=== PATIENT | female | born 1970 ===

== ENCOUNTER 2025-03-19 20:48 | Inpatient (IN) | payer OTHER ==
[~2025-03-19] VITALS: Ht 175.3 cm; Wt 116.1 kg
[2025-03-19 23:54] VITALS: BP 94/60
[2025-03-20] MEDS ORDERED: NS 1,000 ML IV SCH (00:05)
[2025-03-20] MEDS ORDERED: Hydroxychloroq200 MG PO (00:06)
[2025-03-20] MEDS ORDERED: OMEP20ER PO (00:07)
[2025-03-20] MEDS ORDERED: BASAGLAR K100 UNIT/3 SC (00:08)
[2025-03-20] MEDS ORDERED: ALBU90OI INH (00:08)
[2025-03-20] MEDS ORDERED: ATOR40TA PO (00:09)
[2025-03-20] MEDS ORDERED: SERT100 PO (00:10)
[2025-03-20] MEDS ORDERED: SPIRONOLACTONE50 MG PO (00:12)
[2025-03-20] MEDS ORDERED: FLUTICASONE-SAL12 G1 INH (00:12)
[2025-03-20] MEDS ORDERED: METFORMIN HCL500 M3 PO (00:13)
[2025-03-20] MEDS ORDERED: FOLI1 PO (00:14)
[2025-03-20 00:23] LABS: BASOPHILS ABSOLUTE AUTO 0.08 K/mm3 (0.00-0.23); BASOPHILS PERCENT AUTO 1 % (0-2); EOSINOPHILS ABSOLUTE AUTO 0.37 K/mm3 (0.00-0.68); EOSINOPHILS PERCENT AUTO 2 % (0-6); Hematocrit 30.1 % (33.0-51.0); Hemoglobin 9.7 g/dL (11.5-16.0); IMMATURE GRAN ABSOLUTE AUTO 0.10 K/mm3 (0.00-0.10); IMMATURE GRAN PERCENT AUTO 1 % (0-1); LYMPHOCYTES ABSOLUTE AUTO 2.12 K/mm3 (0.84-5.20); LYMPHOCYTES PERCENT AUTO 14 % (21-46); MONOCYTES ABSOLUTE AUTO 1.39 K/mm3 (0.16-1.47); MONOCYTES PERCENT AUTO 9 % (4-13); Mean Corpuscular HGB Conc 32.2 g/dL (31.5-36.5); Mean Corpuscular Volume 85 fL (80-100); NEUTROPHILS ABSOLUTE AUTO 11.33 K/mm3 (1.96-9.15); NEUTROPHILS PERCENT AUTO 74 % (41-73); NRBC ABSOLUTE 0.00 K/mm3 (0.00-0.02); NRBC Auto 0.0 /100 WBC (0.0-0.2); Platelet Count 383 K/mm3 (150-400); RDW Coefficient Variation 12.8 % (11.7-14.2); RDW Standard Deviation 39.7 fL (35.1-46.3)
[2025-03-20] MEDS ORDERED: FentaNYL Citrate 50 MCG/ML 2 ML Injection IV PRN (00:25)
[2025-03-20 00:37] LABS: Prothrombin Time Results 11.3 Sec (9.7-11.5)
[2025-03-20 00:41] LABS: Alanine Aminotransfer (ALT/SGP 25.0 U/L (12-78); Albumin, Blood 2.2 g/dL (3.4-5.0); Albumin/Globulin Ratio 0.5 (0.8-1.8); Anion Gap 9.0 mmol/L (3-11); Aspartate Aminotrans (AST/SGOT 23.0 U/L (12-37); Bilirubin, Total 0.2 mg/dL (0.1-1.0); Blood Urea Nitrogen 14.0 mg/dL (8-24); CO2, Blood 24.0 mmol/L (21-32); Calcium, Blood 8.3 mg/dL (8.5-10.1); Chloride, Blood 106.0 mmol/L (98-108); Creatinine, Blood 0.72 mg/dL (0.40-1.00); Globulin, Blood 4.5 g/dL (2.2-4.0); Glucose, Blood 238.0 mg/dL (70-99); Potassium, Blood 3.3 mmol/L (3.5-5.5); Sodium, Blood 136.0 mmol/L (136-145); Total Protein, Blood 6.7 g/dL (6.4-8.2)
[2025-03-20] MEDS ORDERED: FLU VACC TS2025-26(6MOS UP)/PF 45 MCG/0.5 ML SYRINGE IM SCH (01:30)
[2025-03-20] MEDS ORDERED: Albuterol HFA200 ACT/6.7 GM INH INH SCH (01:35)
[2025-03-20] MEDS ORDERED: Formoterol/Mometasone MDI 5/200 mcg 13 GM INH SCH (01:35)
--- NOTE | 2025-03-20 01:48 | NUR ---
ADMISSION NOTE PT TRANSFERED FROM [facility] AND ARRIVED AT 2337. PT A&OX4, PLEASANT AND COOPERATIVE WITH CARE. PT HAS 2 WOUNDS ON THE BOTTOM OF THE LEFT FOOT, WHICH UPON ADMISSION WERE UNPACKED AND REPACKED AND DRESSED. PT HAS A WOUND ON THE R GREAT TOE WELL. PHOTOS OF THE WOUNDS IN THE PT CHART. NIGHT RESIDENT CAME TO BEDSIDE TO ADDRESS PLAN OF CARE AND GATHER OTHER INFORMATION FROM THE PATIENT. PT ORIENTED TO ROOM, STAFF, AND CALL LIGHT. PT MEDICATED FOR PAIN, HAS NS RUNNING AT 75mLs, AND IS NPO FOR POSSIBLE AMPUTATION OF LEFT LEG TOMORROW. PT IS EMOTIONAL, SUPPORT PROVIDED. PT IS IN BED RESTING AT THIS TIME WITH EVEN AND UNLABORED RESPIRATIONS. CALL LIGHT WITHIN REACH.
[2025-03-20] MEDS ORDERED: Vancomycin (Pharmacy Consult) IV SCH (02:15)
[2025-03-20] MEDS ORDERED: Cefepime HCl 2,000 MG in NS 100 ML IV SCH (03:05)
[2025-03-20 03:06] VITALS: BP 104/63
[2025-03-20] MEDS ORDERED: Albuterol HFA200 ACT/6.7 GM INH INH PRN (03:10)
[2025-03-20] MEDS ORDERED: THERA-D2000 UNIT PO (03:29)
[2025-03-20] MEDS ORDERED: Voltaren100 GM TOP (03:34)
[2025-03-20] MEDS ORDERED: Norco 5-325 Ta1 EACH PO (03:36)
[2025-03-20] MEDS ORDERED: HYDPAM25 PO (03:39)
[2025-03-20] MEDS ORDERED: LINE600 PO (03:54)
[2025-03-20] MEDS ORDERED: MELO7.5 PO (03:55)
--- NOTE | 2025-03-20 05:44 | NUR ---
SHIFT SUMMARY PT IS A&OX4, PLEASANT AND COOPERATIVE WITH CARE. PT DIRECTLY ADMITTED FROM THE [facility] @ 3249. PT HAS BEEN NPO SINCE ARRIVAL FOR POSSIBLE AMPUTATION TODAY OF THE LLE. PT HAS A PUREWICK IN PLACE DUE TO BEDREST STATUS AND PAINFUL WITH MOVEMENT. NO ACTUE CHANGES SINCE ADMISSION NOTE. PT RESTED T/O SHIFT WITH EVEN AND UNLABORED RESPIRATIONS, BED IN THE LOWEST POSITION, AND CALL LIGHT WITHIN REACH.
[2025-03-20 06:10] LABS: Anion Gap 10.0 mmol/L (3-11); Blood Urea Nitrogen 13.0 mg/dL (8-24); CO2, Blood 24.0 mmol/L (21-32); Calcium, Blood 8.8 mg/dL (8.5-10.1); Chloride, Blood 107.0 mmol/L (98-108); Creatinine, Blood 0.71 mg/dL (0.40-1.00); Glucose, Blood 164.0 mg/dL (70-99); Magnesium, Blood 1.6 mg/dL (1.6-2.4); Potassium, Blood 3.5 mmol/L (3.5-5.5); Sodium, Blood 137.0 mmol/L (136-145)
[2025-03-20 07:33] VITALS: BP 103/72
[2025-03-20] MEDS ORDERED: Folic Acid 1 MG TAB PO SCH (09:00)
[2025-03-20] MEDS ORDERED: Lactobacil 2-S.Thermo-Bifido 1 1 Cap PO SCH (09:00)
[2025-03-20] MEDS ORDERED: Insulin Human Lispro 100 Units/ML 3ML Syringe SC SCH (12:00)
[2025-03-20 13:19] LABS: BASOPHILS ABSOLUTE AUTO 0.06 K/mm3 (0.00-0.23); BASOPHILS PERCENT AUTO 1 % (0-2); EOSINOPHILS ABSOLUTE AUTO 0.28 K/mm3 (0.00-0.68); EOSINOPHILS PERCENT AUTO 3 % (0-6); Hematocrit 31.3 % (33.0-51.0); Hemoglobin 9.9 g/dL (11.5-16.0); IMMATURE GRAN ABSOLUTE AUTO 0.06 K/mm3 (0.00-0.10); IMMATURE GRAN PERCENT AUTO 1 % (0-1); LYMPHOCYTES ABSOLUTE AUTO 1.50 K/mm3 (0.84-5.20); LYMPHOCYTES PERCENT AUTO 15 % (21-46); MONOCYTES ABSOLUTE AUTO 0.86 K/mm3 (0.16-1.47); MONOCYTES PERCENT AUTO 9 % (4-13); Mean Corpuscular HGB Conc 31.6 g/dL (31.5-36.5); Mean Corpuscular Volume 86 fL (80-100); NEUTROPHILS ABSOLUTE AUTO 7.25 K/mm3 (1.96-9.15); NEUTROPHILS PERCENT AUTO 72 % (41-73); NRBC ABSOLUTE 0.00 K/mm3 (0.00-0.02); NRBC Auto 0.0 /100 WBC (0.0-0.2); Platelet Count 376 K/mm3 (150-400); RDW Coefficient Variation 12.7 % (11.7-14.2); RDW Standard Deviation 40.0 fL (35.1-46.3)
[2025-03-20 13:40] LABS: C-REACTIVE PROTEIN, EXT RANGE 12.1 mg/dL (0.000-0.300)
[2025-03-20 13:44] LABS: Alanine Aminotransfer (ALT/SGP 26.0 U/L (12-78); Albumin, Blood 2.4 g/dL (3.4-5.0); Albumin/Globulin Ratio 0.6 (0.8-1.8); Anion Gap 5.0 mmol/L (3-11); Aspartate Aminotrans (AST/SGOT 23.0 U/L (12-37); Bilirubin, Total 0.3 mg/dL (0.1-1.0); Blood Urea Nitrogen 12.0 mg/dL (8-24); CO2, Blood 26.0 mmol/L (21-32); Calcium, Blood 8.1 mg/dL (8.5-10.1); Chloride, Blood 107.0 mmol/L (98-108); Creatinine, Blood 0.69 mg/dL (0.40-1.00); Globulin, Blood 4.0 g/dL (2.2-4.0); Glucose, Blood 285.0 mg/dL (70-99); Potassium, Blood 3.9 mmol/L (3.5-5.5); Sodium, Blood 134.0 mmol/L (136-145); Total Protein, Blood 6.4 g/dL (6.4-8.2)
[2025-03-20 15:12] VITALS: BP 110/65
--- NOTE | 2025-03-20 15:58 | NUR ---
SHIFT SUMMARY: A&OX4 THROUGHOUT SHIFT. PLEASANT AND COOPERATIVE WITH CARE. PT HAS REPORTED PAIN A FEW TIMES AND TREATED PER EMAR. WOUND DRESSING WAS CHANGED THIS MORNING AFTER ORTHO ASSESSED THE WOUND. PT RECIEVED A CONSULT FROM PODIATRY LATER THIS AFTERNOON TO HELP DETERMINE THE PLAN OF CARE. PLAN IS FOR THE PT TO BE NPO STATUS AT 0000 TONIGHT FOR POTENTIAL SURGERY. BEDREST STATUS REMAINS. REPOSITIONING OFFERED TO PT, BUT FREQUENTLY DECLINED. NO ACUTE EVENTS. BREATHING EQUAL AND NONLABORED. PT IS LYING IN BED AT THIS TIME, LOCKED AND IN ITS LOWEST POSITION. CALL LT WITHIN REACH.
[2025-03-20 20:34] VITALS: BP 98/60
[2025-03-20] MEDS ORDERED: Arginine/Glutamine/Calcium Hmb 1 Packet PO SCH (21:00)
[2025-03-20] MEDS ORDERED: Insulin Glargine 100 Unit/ML 3 ML SYR SC SCH (21:00)
[2025-03-20] MEDS ORDERED: HUMALOG KW100 UNIT/1 (21:12)
[2025-03-20] MEDS ORDERED: ACET500 PO (21:14)
[2025-03-20] MEDS ORDERED: Insulin Glargine 100 Unit/ML 3 ML SYR SC ONE (23:15)
[2025-03-21 03:36] VITALS: BP 96/58
--- NOTE | 2025-03-21 05:13 | NUR ---
SHIFT SUMMARY PT IS A&OX4, PLEASANT AND COOPERATIVE WITH CARE. PT CALLS APPROPRIATELY. PT HAS BEEN NPO SINCE MIDNIGHT FOR BKA OF LLE TODAY. PT REPORTED PAIN T/O SHIFT, MEDICATED PER EMAR. AT THE BEGINNING OF SHIFT, PT HAD AN ELEVATED TEMPERATURE, TYLENOL PROVIDED AND HAD A GOOD EFFECT. NO OTHER ACUTE CHANGES THIS SHIFT. PT RESTED T/O SHIFT WITH EVEN AND UNLABORED RESPIRATIONS, BED IN THE LOWEST POSITION, AND CALL LIGHT WITHIN REACH.
[2025-03-21 07:59] VITALS: BP 106/72
[2025-03-21 08:38] LABS: BASOPHILS ABSOLUTE AUTO 0.09 K/mm3 (0.00-0.23); BASOPHILS PERCENT AUTO 1 % (0-2); EOSINOPHILS ABSOLUTE AUTO 0.32 K/mm3 (0.00-0.68); EOSINOPHILS PERCENT AUTO 3 % (0-6); Hematocrit 28.6 % (33.0-51.0); Hemoglobin 9.4 g/dL (11.5-16.0); IMMATURE GRAN ABSOLUTE AUTO 0.10 K/mm3 (0.00-0.10); IMMATURE GRAN PERCENT AUTO 1 % (0-1); LYMPHOCYTES ABSOLUTE AUTO 2.02 K/mm3 (0.84-5.20); LYMPHOCYTES PERCENT AUTO 21 % (21-46); MONOCYTES ABSOLUTE AUTO 0.92 K/mm3 (0.16-1.47); MONOCYTES PERCENT AUTO 10 % (4-13); Mean Corpuscular HGB Conc 32.9 g/dL (31.5-36.5); Mean Corpuscular Volume 83 fL (80-100); NEUTROPHILS ABSOLUTE AUTO 6.22 K/mm3 (1.96-9.15); NEUTROPHILS PERCENT AUTO 64 % (41-73); NRBC ABSOLUTE 0.00 K/mm3 (0.00-0.02); NRBC Auto 0.0 /100 WBC (0.0-0.2); Platelet Count 414 K/mm3 (150-400); RDW Coefficient Variation 12.9 % (11.7-14.2); RDW Standard Deviation 39.2 fL (35.1-46.3)
[2025-03-21 09:16] LABS: Anion Gap 9.0 mmol/L (3-11); Blood Urea Nitrogen 14.0 mg/dL (8-24); CO2, Blood 26.0 mmol/L (21-32); Calcium, Blood 8.8 mg/dL (8.5-10.1); Chloride, Blood 105.0 mmol/L (98-108); Creatinine, Blood 0.71 mg/dL (0.40-1.00); Glucose, Blood 251.0 mg/dL (70-99); Potassium, Blood 3.5 mmol/L (3.5-5.5); Sodium, Blood 136.0 mmol/L (136-145)
[2025-03-21 15:29] VITALS: BP 105/64
[2025-03-21 16:24] LABS: Vancomycin, Trough 22.8 ug/mL (5.0-10.0)
--- NOTE | 2025-03-21 17:54 | NUR ---
SUMMARY- PT AAOX4. SLEPT MOST OF THE SHIFT. LLE LEG PAIN WELL CONTROLLED WITH EMAR PAIN MEDS. PT ON RA. BEDREST. NO ACUTE EVENTS THIS SHIFT.
[2025-03-21 19:53] VITALS: BP 103/62
[2025-03-21] MEDS ORDERED: Insulin Glargine 100 Unit/ML 3 ML SYR SC ONE (21:35)
[2025-03-22] VITALS (20 sets, daily range): BP systolic 97–118; BP diastolic 60–95
[2025-03-22] MEDS ORDERED: NS 250 ML IV PRN (00:05)
[2025-03-22 04:47] LABS: BASOPHILS ABSOLUTE AUTO 0.07 K/mm3 (0.00-0.23); BASOPHILS PERCENT AUTO 1 % (0-2); EOSINOPHILS ABSOLUTE AUTO 0.31 K/mm3 (0.00-0.68); EOSINOPHILS PERCENT AUTO 2 % (0-6); Hematocrit 31.0 % (33.0-51.0); Hemoglobin 10.3 g/dL (11.5-16.0); IMMATURE GRAN ABSOLUTE AUTO 0.11 K/mm3 (0.00-0.10); IMMATURE GRAN PERCENT AUTO 1 % (0-1); LYMPHOCYTES ABSOLUTE AUTO 1.84 K/mm3 (0.84-5.20); LYMPHOCYTES PERCENT AUTO 14 % (21-46); MONOCYTES ABSOLUTE AUTO 1.09 K/mm3 (0.16-1.47); MONOCYTES PERCENT AUTO 9 % (4-13); Mean Corpuscular HGB Conc 33.2 g/dL (31.5-36.5); Mean Corpuscular Volume 83 fL (80-100); NEUTROPHILS ABSOLUTE AUTO 9.33 K/mm3 (1.96-9.15); NEUTROPHILS PERCENT AUTO 73 % (41-73); NRBC ABSOLUTE 0.00 K/mm3 (0.00-0.02); NRBC Auto 0.0 /100 WBC (0.0-0.2); Platelet Count 441 K/mm3 (150-400); RDW Coefficient Variation 12.4 % (11.7-14.2); RDW Standard Deviation 37.9 fL (35.1-46.3)
[2025-03-22 05:33] LABS: Anion Gap 10.0 mmol/L (3-11); Blood Urea Nitrogen 20.0 mg/dL (8-24); CO2, Blood 26.0 mmol/L (21-32); Calcium, Blood 9.4 mg/dL (8.5-10.1); Chloride, Blood 102.0 mmol/L (98-108); Creatinine, Blood 0.61 mg/dL (0.40-1.00); Glucose, Blood 333.0 mg/dL (70-99); Potassium, Blood 3.5 mmol/L (3.5-5.5); Sodium, Blood 134.0 mmol/L (136-145)
--- NOTE | 2025-03-22 05:42 | NUR ---
SHIFT SUMMARY (301) PT IS A&OX4, PLEASANT AND COOPERATIVE WITH CARE. FAMILY AT BEDSIDE T/O SHIFT. PT EXPRESSES ANXIETY FOR BKA PROCEDURE LATER TODAY, SUPPORT WAS PROVIDED BY THIS RN AND FAMILY. NPO SINCE MIDNIGHT. PT MEDICATED FOR PAIN TO THE LLE PER EMAR. NO ACUTE CHANGES THIS SHIFT. PT SLEPT T/O SHIFT WITH EVEN AND UNLABORED RESPIRATIONS, BED IN THE LOWEST POSITION, AND CALL LIGHT WITHIN REACH.
[2025-03-22] MEDS ORDERED: Tranexamic Acid 100 ML IV SCH (07:15)
[2025-03-22] MEDS ORDERED: FentaNYL Citrate 50 MCG/ML 2 ML Injection ONE ×2 (11:18→14:27)
[2025-03-22] MEDS ORDERED: Ondansetron HCl 2 MG / ML 2ML Vial ONE (11:20)
[2025-03-22] MEDS ORDERED: Dexamethasone Sod Phos 10 MG/ML 1ML VIAL ONE (11:20)
[2025-03-22] MEDS ORDERED: FentaNYL Citrate 50 MCG/ML 2 ML Injection IV PRN ×3 (11:30→11:35)
[2025-03-22] MEDS ORDERED: Midazolam HCl 1MG / ML 2ML Vial IV PRN (11:30)
[2025-03-22] MEDS ORDERED: Insulin Human Lispro 100 Units/ML 3ML Syringe SC SCH (11:30)
[2025-03-22] MEDS ORDERED: Metoclopramide HCl 5MG / ML 2ML Vial IV PRN (11:35)
[2025-03-22] MEDS ORDERED: HYDROmorphone HCl/Pf 1MG SYR IV PRN (11:35)
[2025-03-22] MEDS ORDERED: Ondansetron HCl 2 MG / ML 2ML Vial IV PRN (11:35)
--- NOTE | 2025-03-22 12:04 | NUR ---
PATIENT OFF MED FLOOR FOR SURGERY.
[2025-03-22] MEDS ORDERED: HYDROcodone 5-APAP 325 TAB PO PRN (12:15)
[2025-03-22] MEDS ORDERED: Dexmedetomidine HCL 200 MCG / 2 ML ONE (12:36)
[2025-03-22] MEDS ORDERED: HYDROmorphone HCl/Pf 1MG SYR ONE ×2 (13:14→14:31)
--- NOTE | 2025-03-22 14:26 | NUR ---
JOINT VISIT WITH THIS MORNING. AT BEDSIDE ASSESSING PT FOR SURGICAL INTERVENTION TO LLE. PT CONSENTED TO LEFT BKA THIS AFTERNOON. SHE WAS ACTIVELY ENGAGED IN CONVERSATION RE: ENVIRONMENTAL HEALTH SAFETY MANAGER GOALS S/P LEFT BKA. THIS PC RN REAFFIRMED IMPORTANCE OF DIABETES MANAGEMENT S/P BKA FOR GOOD WOUND HEALING, DECREASE INFECTION RISKS AND DECREASE THE POSSIBILITY OF NEEDING FURTHER SURGICAL INTERVENTIONS. ADDITIONAL WOUND RIGHT GREAT TOE. CHRONIC DIABETIC FOOT WOUNDS. POOR DIABETES LITERACY. DENIES OUTPATIENT DIABETES EDUCATION. PLUG STITCHER CONSULT PLACED FOR ASSISTANCE WITH EDUCATION. PT'S DTR JOJO ROSE, SON MARCOS ROSE, RESIDENT RN PRESENT FOR VISIT WELL. PT IDENTIFIED HER SON MARCOS ROSE HER DECISION IF SHE IS NOT ABLE TO MAKE DECISIONS FOR HERSELF. PT REPORTS SHE WOULD LIKE TO GO TO SNF AT TIME OF DISCHARGE. VM LEFT FOR CM1. PC TO REMAIN AVAILABLE NEEDED.
--- NOTE | 2025-03-22 16:03 | NUR ---
PT A/OX4. PLEASANT AND COOPERATIVE WITH CARE. PT HAS BEEN EMOTIONAL AFTER HER LEFT BKA TODAY. FAMILY HAS BEEN AT THE BEDSIDE T/O SHIFT. PAIN HAS BEEN TREATED PER EMAR. PT ARRIVED FROM PACU ON 3L OF O2 NC, WITH RA BEING HER BASELINE. POST-OP VITALS HAVE BEEN STABLE. PT IS CURRENTLY RESTING IN BED WITH EVEN AND UNLABORED RESPIRATIONS. BED IS IN LOWEST POSITION, CALL LIGHT IS IN REACH.
--- NOTE | 2025-03-22 17:32 | NUR ---
THIS RN CONTACTED DR. LOPEZ ABOUT PTS BLOOD SUGAR BEING 374. PER DR. SANCHEZ ORDERS, 15 UNITS OF INSULIN ADMINISTERED TO PT.
[2025-03-22] MEDS ORDERED: Insulin Glargine 100 Unit/ML 3 ML SYR SC SCH (21:00)
[2025-03-22] MEDS ORDERED: Insulin Glargine-Yfgn 100 Unit/mL 3 ML SYR SC SCH (21:00)
[2025-03-22] MEDS ORDERED: Insulin Human Lispro 100 Units/ML 3ML Syringe SC ONE ×2 (21:45→23:00)
--- NOTE | 2025-03-22 23:00 | NUR ---
UPDATED PHYSICIAN ABOUT CHANGE IN CBG LEVEL FROM 499 TO 458 ONE HOUR AFTER THE ADMINISTRATION OF 10 UNITS HUMALOG AND 40 OF LANTUS. MD ORDERED X1 10 UNITS OF HUMALOG AND A RECHECK OF CBG IN AN HOUR. GOAL IS TO ACHIEVE A CBG OF >350.
[2025-03-23 00:19] VITALS: BP 112/62
[2025-03-23] MEDS ORDERED: Insulin Glargine-Yfgn 100 Unit/mL 3 ML SYR SC ONE (00:55)
[2025-03-23 04:02] VITALS: BP 102/71
--- NOTE | 2025-03-23 04:56 | NUR ---
ORIENTING NURSE DOCUMENTATION REVIEW: TREATMENTS, MEDICATIONS AND PATIENT CARE PROVIDED TO PATIENT AND DOCUMENTATION ENTERED BY ORIENTING NURSECHAI, OVERSEEN BY THIS RN.
--- NOTE | 2025-03-23 05:01 | NUR ---
SHIFT SUMMARY PT IS STATUS POST OP BKA OF THE LLE. PT IS A&OX4, PLEASANT AND COOPERATIVE WITH CARE. PT REPORTED 8-9/10 PAIN AT THE INCISION SITE THROUGHOUT SHIFT, PT MEDICATED PER EMAR FOR PAIN WITH GOOD EFFECT. AT THE BEGINNING OF SHIFT PT HAD A CBG OF 499, MD WAS NOTIFIED AND ADDITIONAL ORDERS OF INSULIN WERE ORDERED. SEE PREVIOUS NOTES. NO OTHER ACUTE CHANGES THIS SHIFT. PT HAS BEEN WEANED OFF OF O2 AND IS SATING >92%, DENIES SHORTNESS OF BREATH. PT RESTED T/O SHIFT WITH EVEN AND UNLABORED RESPIRATION, BED IN THE LOWEST POSITION, AND CALL LIGHT WITHIN REACH.
[2025-03-23 05:25] LABS: BASOPHILS ABSOLUTE AUTO 0.07 K/mm3 (0.00-0.23); BASOPHILS PERCENT AUTO 0 % (0-2); EOSINOPHILS ABSOLUTE AUTO 0.02 K/mm3 (0.00-0.68); EOSINOPHILS PERCENT AUTO 0 % (0-6); Hematocrit 31.8 % (33.0-51.0); Hemoglobin 10.5 g/dL (11.5-16.0); IMMATURE GRAN ABSOLUTE AUTO 0.19 K/mm3 (0.00-0.10); IMMATURE GRAN PERCENT AUTO 1 % (0-1); LYMPHOCYTES ABSOLUTE AUTO 1.04 K/mm3 (0.84-5.20); LYMPHOCYTES PERCENT AUTO 6 % (21-46); MONOCYTES ABSOLUTE AUTO 1.38 K/mm3 (0.16-1.47); MONOCYTES PERCENT AUTO 7 % (4-13); Mean Corpuscular HGB Conc 33.0 g/dL (31.5-36.5); Mean Corpuscular Volume 83 fL (80-100); NEUTROPHILS ABSOLUTE AUTO 16.05 K/mm3 (1.96-9.15); NEUTROPHILS PERCENT AUTO 86 % (41-73); NRBC ABSOLUTE 0.00 K/mm3 (0.00-0.02); NRBC Auto 0.0 /100 WBC (0.0-0.2); Platelet Count 470 K/mm3 (150-400); RDW Coefficient Variation 12.4 % (11.7-14.2); RDW Standard Deviation 37.4 fL (35.1-46.3)
[2025-03-23 06:01] LABS: Anion Gap 10 mmol/L (3-11); Blood Urea Nitrogen 23 mg/dL (8-24); CO2, Blood 25 mmol/L (21-32); Calcium, Blood 9.2 mg/dL (8.5-10.1); Chloride, Blood 103 mmol/L (98-108); Creatinine, Blood 0.61 mg/dL (0.40-1.00); Glucose, Blood 384 mg/dL (70-99); Potassium, Blood 3.9 mmol/L (3.5-5.5); Sodium, Blood 134 mmol/L (136-145); Vancomycin, Trough 16.8 ug/mL (5.0-10.0)
[2025-03-23 07:25] VITALS: BP 113/78
[2025-03-23] MEDS ORDERED: Insulin NPH 100 Unit / ML 10ML Vial SC SCH (09:00)
--- NOTE | 2025-03-23 10:01 | NUR ---
ASSUMED CARE. PT A/O X 4 PLEASENT AND COOPERATIVE WITH CARE, C/O NAGGING PAIN TO LEFT STUMP. DRESSING C/D/I. RIGHT SCD ON AND PT IS KNOWN BEDREST. FSBS >350 WITH COVERAGE, BUT IS DOWN FROM THIS MORNING. WILL CONT TO MONITOR PT WAS GIVEN PAIN MEDICATION AT 6AM SO WILL WAIT UNTIL 8 TO TRY ADDITIONAL MEDICATION.
--- NOTE | 2025-03-23 10:03 | NUR ---
0830 MEDICATED FOR PAIN. L STUMP ELEVATED.
--- NOTE | 2025-03-23 10:04 | NUR ---
0930 PAIN 8/10 THROBBING PT MEDICAted WITH IV MEDICATION.
[2025-03-23] MEDS ORDERED: HYDROmorphone HCl/Pf 1MG SYR IV PRN (14:45)
--- NOTE | 2025-03-23 17:42 | NUR ---
PT OOB TO TOILET USING STEADY. PT TRANSFERED VERY WELL TO TOILET WAS ABLE TO HAVE LARGE BM, STUMP STILL C/D/I PT BACK TO BED AND MEDICATED FOR INCREASED PAIN.
--- NOTE | 2025-03-23 17:44 | NUR ---
BOTH PT/OT SEEM PT, PT MOTIVATED TO DO THE WORK LONG PAIN IS IN CONTROL.
--- NOTE | 2025-03-23 17:45 | NUR ---
DIETITIAN IN TO SEE PT DIETITIAN AND PT SPOKE AT LENGTH CONCERING DIET AND DM. IT WAS WELL RECEIVED.
--- NOTE | 2025-03-23 18:07 | NUR ---
SPOKE WITH DR LOPEZ REGARDING PT MEDICATION NOT HELPING RELEAVE PAIN. MEDICATION TIMES CHANGED PT MORE COMFORTABLE NOW.
[2025-03-23 20:20] VITALS: BP 99/67
[2025-03-23] MEDS ORDERED: Insulin Glargine 100 Unit/ML 3 ML SYR SC SCH ×2 (21:00)
[2025-03-24 04:26] VITALS: BP 102/60
[2025-03-24 05:10] LABS: BASOPHILS ABSOLUTE AUTO 0.09 K/mm3 (0.00-0.23); BASOPHILS PERCENT AUTO 1 % (0-2); EOSINOPHILS ABSOLUTE AUTO 0.25 K/mm3 (0.00-0.68); EOSINOPHILS PERCENT AUTO 2 % (0-6); Hematocrit 31.5 % (33.0-51.0); Hemoglobin 10.3 g/dL (11.5-16.0); IMMATURE GRAN ABSOLUTE AUTO 0.18 K/mm3 (0.00-0.10); IMMATURE GRAN PERCENT AUTO 1 % (0-1); LYMPHOCYTES ABSOLUTE AUTO 2.74 K/mm3 (0.84-5.20); LYMPHOCYTES PERCENT AUTO 21 % (21-46); MONOCYTES ABSOLUTE AUTO 1.16 K/mm3 (0.16-1.47); MONOCYTES PERCENT AUTO 9 % (4-13); Mean Corpuscular HGB Conc 32.7 g/dL (31.5-36.5); Mean Corpuscular Volume 85 fL (80-100); NEUTROPHILS ABSOLUTE AUTO 8.95 K/mm3 (1.96-9.15); NEUTROPHILS PERCENT AUTO 67 % (41-73); NRBC ABSOLUTE 0.00 K/mm3 (0.00-0.02); NRBC Auto 0.0 /100 WBC (0.0-0.2); Platelet Count 490 K/mm3 (150-400); RDW Coefficient Variation 12.8 % (11.7-14.2); RDW Standard Deviation 38.1 fL (35.1-46.3)
[2025-03-24 05:27] LABS: Anion Gap 8.0 mmol/L (3-11); Blood Urea Nitrogen 32.0 mg/dL (8-24); CO2, Blood 25.0 mmol/L (21-32); Calcium, Blood 8.9 mg/dL (8.5-10.1); Chloride, Blood 106.0 mmol/L (98-108); Creatinine, Blood 0.7 mg/dL (0.40-1.00); Glucose, Blood 238.0 mg/dL (70-99); Potassium, Blood 3.3 mmol/L (3.5-5.5); Sodium, Blood 136.0 mmol/L (136-145)
--- NOTE | 2025-03-24 06:37 | NUR ---
END OF SHIFT SUMMARY: A&Ox4. PLEASANT AND COOPERATIVE WITH CARE. CALLS APPROPRIATELY AND IS ABLE TO ADVOCATE NEEDS EFFECTIVELY. VSS. BREATHING EVEN AND UNLABORED c RA. CONTINENT OF BOWEL AND BLADDER; LBM 03/23/25. PUREWICK IN PLACE FOR LIMITED MOBILITY AND POLYURIA. TOLERATING DIET. HAS NOT AMBULATED TONIGHT. CONTINUES TO ELEVATE LLE ON PILLOWS. MEDS WHOLE c FLUIDS. NEW IV PLACED RFA. NO ACUTE OVERNIGHT EVENTS. BLOOD SUGARS CONTROLLED. BED IN LOWEST POSITION, CALL LIGHT WITHIN REACH, ALL NEEDS MET. REPORT TO ONCOMING NURSE.
[2025-03-24 07:35] VITALS: BP 105/67
[2025-03-24] MEDS ORDERED: Potassium Chloride 10 Meq Tablet SA PO ONE (08:40)
[2025-03-24] MEDS ORDERED: HYDROmorphone HCl/Pf 1MG SYR IV ONE (11:25)
--- NOTE | 2025-03-24 11:44 | NUR ---
CALLED AND SPOKE WITH DR LOPEZ ABOUT PT REPORTING 9/[address] IRVING CHANGING HER DRESSING. NEW ORDER FOR ONE TIME DOSE OF DILAUDID 1MG GIVEN WITH DOSE GIVEN. PT CURRENTLY UP IN RECLINER CHAIR.
--- NOTE | 2025-03-24 14:06 | NUR ---
ASSUMED CARE PT DOING WELL TODAY WORKED WITH PT AND WAS ABLE TO TRANSFER IN CHAIR. PAIN CONTS AND IS PERSISTENT. PT WAS MEDICATED PER JUL. AWAITNG TRANSPORT NOW, CHANGED FROM 10AM TO 1215 BUT TRANSFER IS LATE STILL. OSTOMY EMPIED MENG WAS PLACED PER RN FOR COMFORT.
[2025-03-24 15:45] VITALS: BP 121/78
--- NOTE | 2025-03-24 19:03 | NUR ---
ASSUMED CARE PT DOING MUCH BETTER TODAY AND HAS BEEN VERY MOTIVIATED TO GET OOB AND INTO CHAIR. PT WAS ABLE TO WORK WITH PT AND TRANSFER WITH MINIMAL ASSIST. PT C/O PRESISTENT PAIN TO L STUMP AND HAS BEEN MEDICATED PER JUL. FSBS BETTER TODAY BETTER CONTROLLED WITH NEW DIABETIC MEDS. CALL LIGHT WITHIN IN REACH. SURGEON IN TO CHANGE DRESSING TO L STUMP, PT ENDY WELL.
[2025-03-24 20:17] VITALS: BP 114/71
[2025-03-24] MEDS ORDERED: Insulin Glargine 100 Unit/ML 3 ML SYR SC SCH (21:00)
[2025-03-25 02:44] VITALS: BP 111/69
[2025-03-25 05:05] LABS: BASOPHILS ABSOLUTE AUTO 0.11 K/mm3 (0.00-0.23); BASOPHILS PERCENT AUTO 1 % (0-2); EOSINOPHILS ABSOLUTE AUTO 0.36 K/mm3 (0.00-0.68); EOSINOPHILS PERCENT AUTO 3 % (0-6); Hematocrit 32.7 % (33.0-51.0); Hemoglobin 10.8 g/dL (11.5-16.0); IMMATURE GRAN ABSOLUTE AUTO 0.21 K/mm3 (0.00-0.10); IMMATURE GRAN PERCENT AUTO 2 % (0-1); LYMPHOCYTES ABSOLUTE AUTO 1.78 K/mm3 (0.84-5.20); LYMPHOCYTES PERCENT AUTO 12 % (21-46); MONOCYTES ABSOLUTE AUTO 1.46 K/mm3 (0.16-1.47); MONOCYTES PERCENT AUTO 10 % (4-13); Mean Corpuscular HGB Conc 33.0 g/dL (31.5-36.5); Mean Corpuscular Volume 85 fL (80-100); NEUTROPHILS ABSOLUTE AUTO 10.53 K/mm3 (1.96-9.15); NEUTROPHILS PERCENT AUTO 73 % (41-73); NRBC ABSOLUTE 0.00 K/mm3 (0.00-0.02); NRBC Auto 0.0 /100 WBC (0.0-0.2); Platelet Count 510 K/mm3 (150-400); RDW Coefficient Variation 13.1 % (11.7-14.2); RDW Standard Deviation 39.6 fL (35.1-46.3)
[2025-03-25 05:29] LABS: Anion Gap 9.0 mmol/L (3-11); Blood Urea Nitrogen 28.0 mg/dL (8-24); CO2, Blood 24.0 mmol/L (21-32); Calcium, Blood 9.1 mg/dL (8.5-10.1); Chloride, Blood 106.0 mmol/L (98-108); Creatinine, Blood 0.67 mg/dL (0.40-1.00); Glucose, Blood 217.0 mg/dL (70-99); Potassium, Blood 3.6 mmol/L (3.5-5.5); Sodium, Blood 135.0 mmol/L (136-145)
--- NOTE | 2025-03-25 05:59 | NUR ---
SHIFT SUMMARY PT A&Ox4 AND PLEASANT. PT C/O PAIN IN LEFT STUMP T/O NIGHT. MEDICATED FOR PAIN PER EMAR ALONG WITH REPOSITIONING AND ELEVATING STUMP. CONTINUING IV ABX. EVENING BG WAS 217 AND INSULINE GLRAGINE GIVEN AT HS. DRESSING REMAINS C/D/I. VSS. BED IN LOWEST POSITION AND CALL LIGHT IN REACH.
[2025-03-25 07:25] VITALS: BP 106/66
[2025-03-25 15:06] VITALS: BP 113/78
--- NOTE | 2025-03-25 17:10 | NUR ---
SUMMARY NO ACUTE CHANGES THIS SHIFT. PT PAIN WELL CONTROLLED WITH CURRENT PAIN MANAGEMENT REGIMEN. PT PLANNED FOR REHAB ONCE MEDICALLY STABLE. PT BLOOD SUGARS MUCH IMPROVED THIS SHIFT COMPARED WITH PREVIOUS SHIFTS. ABLE TO EXPRESS NEEDS. DRESSING C/D/I
[2025-03-25 19:47] VITALS: BP 122/79
[2025-03-25] MEDS ORDERED: Insulin Glargine 100 Unit/ML 3 ML SYR SC SCH (21:00)
[2025-03-26 02:36] VITALS: BP 108/69
--- NOTE | 2025-03-26 04:31 | NUR ---
SHIFT SUMMARY PT A&Ox4 AND PLEASANT. CONTINUING IV ABX PER EMAR. PT ABLE TO STAND AND PIVOT TO CHAIR AND BEDSIDE COMMODE. DRESSING ON LEFT STUMP REMAINS C/D/I. MEDICATED FOR PAIN T/O NIGHT. BG WAS 229 AT HS AND 80 UNITS OF GLARGINE GIVEN PER ORDER. VSS. BED IN LOWEST POSITION AND CALL LIGHT IN REACH.
[2025-03-26 05:07] LABS: BASOPHILS ABSOLUTE AUTO 0.11 K/mm3 (0.00-0.23); BASOPHILS PERCENT AUTO 1 % (0-2); EOSINOPHILS ABSOLUTE AUTO 0.30 K/mm3 (0.00-0.68); EOSINOPHILS PERCENT AUTO 2 % (0-6); Hematocrit 30.5 % (33.0-51.0); Hemoglobin 9.8 g/dL (11.5-16.0); IMMATURE GRAN ABSOLUTE AUTO 0.24 K/mm3 (0.00-0.10); IMMATURE GRAN PERCENT AUTO 2 % (0-1); LYMPHOCYTES ABSOLUTE AUTO 2.08 K/mm3 (0.84-5.20); LYMPHOCYTES PERCENT AUTO 16 % (21-46); MONOCYTES ABSOLUTE AUTO 1.21 K/mm3 (0.16-1.47); MONOCYTES PERCENT AUTO 9 % (4-13); Mean Corpuscular HGB Conc 32.1 g/dL (31.5-36.5); Mean Corpuscular Volume 85 fL (80-100); NEUTROPHILS ABSOLUTE AUTO 9.38 K/mm3 (1.96-9.15); NEUTROPHILS PERCENT AUTO 70 % (41-73); NRBC ABSOLUTE 0.00 K/mm3 (0.00-0.02); NRBC Auto 0.0 /100 WBC (0.0-0.2); Platelet Count 474 K/mm3 (150-400); RDW Coefficient Variation 13.1 % (11.7-14.2); RDW Standard Deviation 39.5 fL (35.1-46.3)
[2025-03-26 05:42] LABS: Anion Gap 7 mmol/L (3-11); Blood Urea Nitrogen 29 mg/dL (8-24); CO2, Blood 24 mmol/L (21-32); Calcium, Blood 8.7 mg/dL (8.5-10.1); Chloride, Blood 108 mmol/L (98-108); Creatinine, Blood 0.62 mg/dL (0.40-1.00); Glucose, Blood 197 mg/dL (70-99); Potassium, Blood 3.2 mmol/L (3.5-5.5); Sodium, Blood 136 mmol/L (136-145); Vancomycin, Trough 21.3 ug/mL (5.0-10.0)
[2025-03-26 07:31] VITALS: BP 105/69
[2025-03-26 15:25] VITALS: BP 115/72
--- NOTE | 2025-03-26 17:20 | NUR ---
PT A/OX4. PLEASANT AND COOPERATIVE WITH CARE. SHE IS A 1PA PIVOT TO THE BEDSIDE COMMODE. ABLE TO MAKE NEEDS KNOWN WELL WITH CALL LIGHT. PAIN HAS BEEN TREATED PER EMAR. DRESSING CHANGED TODAY ON 03/26/25 PER EMAR. PT IS CURRENTLY SITTING UP IN CHAIR WATCHING TV. CALL LIGHT IS IN REACH. NO ACUTE NEEDS AT THIS TIME.
[2025-03-26 19:56] VITALS: BP 103/65
[2025-03-26] MEDS ORDERED: Insulin Glargine 100 Unit/ML 3 ML SYR SC SCH (21:00)
[2025-03-27 03:53] VITALS: BP 111/69
--- NOTE | 2025-03-27 04:33 | NUR ---
SHIFT SUMMARY PT A&Ox4 AND PLEASANT. CONTINUING IV ABX. PT's PAIN SEEMS TO BE IMPROVING PT DID NOT NEED PAIN MEDICATION FREQUENTLY. UP OFTEN T/O THE NIGHT TO USE BSC. NO ACUTE CHANGES. DRESSING ON LBKA REMAINS C/D/I. VSS. BED IN LOWEST POSITION AND CALL LIGHT IN REACH.
[2025-03-27 04:57] LABS: BASOPHILS ABSOLUTE AUTO 0.09 K/mm3 (0.00-0.23); BASOPHILS PERCENT AUTO 1 % (0-2); EOSINOPHILS ABSOLUTE AUTO 0.37 K/mm3 (0.00-0.68); EOSINOPHILS PERCENT AUTO 3 % (0-6); Hematocrit 31.5 % (33.0-51.0); Hemoglobin 10.2 g/dL (11.5-16.0); IMMATURE GRAN ABSOLUTE AUTO 0.19 K/mm3 (0.00-0.10); IMMATURE GRAN PERCENT AUTO 2 % (0-1); LYMPHOCYTES ABSOLUTE AUTO 1.79 K/mm3 (0.84-5.20); LYMPHOCYTES PERCENT AUTO 15 % (21-46); MONOCYTES ABSOLUTE AUTO 1.02 K/mm3 (0.16-1.47); MONOCYTES PERCENT AUTO 9 % (4-13); Mean Corpuscular HGB Conc 32.4 g/dL (31.5-36.5); Mean Corpuscular Volume 85 fL (80-100); NEUTROPHILS ABSOLUTE AUTO 8.24 K/mm3 (1.96-9.15); NEUTROPHILS PERCENT AUTO 70 % (41-73); NRBC ABSOLUTE 0.00 K/mm3 (0.00-0.02); NRBC Auto 0.0 /100 WBC (0.0-0.2); Platelet Count 462 K/mm3 (150-400); RDW Coefficient Variation 13.2 % (11.7-14.2); RDW Standard Deviation 40.6 fL (35.1-46.3)
[2025-03-27 05:26] LABS: Anion Gap 9.0 mmol/L (3-11); Blood Urea Nitrogen 32.0 mg/dL (8-24); CO2, Blood 24.0 mmol/L (21-32); Calcium, Blood 8.8 mg/dL (8.5-10.1); Chloride, Blood 109.0 mmol/L (98-108); Creatinine, Blood 0.59 mg/dL (0.40-1.00); Glucose, Blood 196.0 mg/dL (70-99); Potassium, Blood 3.3 mmol/L (3.5-5.5); Sodium, Blood 139.0 mmol/L (136-145)
[2025-03-27 07:21] VITALS: BP 118/76
--- NOTE | 2025-03-27 09:00 | NUR ---
SUPPORTIVE VISIT: A/O X4. DENIES PAIN. WAX AND WANES WITH EMOTION RE: ARACELY. SHE IS LOOKING FORWARD TO GOING TO SNF AND BEING CLOSER TO HER FAMILY. BOTH SON AND DTR ARE VERY SUPPORTIVE. PROVIDED EDUCATION MATERIALS FOR DIABETES.
--- NOTE | 2025-03-27 13:44 | NUR ---
DISCHARGE SUMMARY PATIENT DISCHARGED TO [facility] IN [place]. REPORT CALLED TO ECHO. IV REMOVED WITHOUT COMPLICATION. HARD SCRIPT SENT IN PACKET. STUMP COVERED WITH DRESSING AND STUMP SOCK. NO DRAINAGE NOTED, NOT CHANGED THIS SHIFT ORDER IS QOD AND WAS DONE YESTERDAY. SKIN OTHERWISE INTACT ON LEAVING. REPORTS PAIN /10, RELIEVED ADEQUATELY TO 4-5/10 WITH PO MEDS PER JUL. A/O X4 IN GOOD SPIRITS.
== END 2025-03-27 12:35 | DRG 617 ==
LOC: MEDS 20:48 → ENPENDDIS 03-27 10:54 → MEDS 03-27 12:35
PROVIDERS: Family Medicine; Orthopaedic Surgery; Student in an Organized Health Care Education/Training Program; ADMIT Internal Medicine
PROC: 3E03329 Introduction of Other Anti-infective into Peripheral Vein, Percutaneous Approach (ICD-10-PCS; 2025-03-20)
PROC: 0Y6J0Z2 Detachment at Left Lower Leg, Mid, Open Approach (ICD-10-PCS; principal; 2025-03-22 12:30)
DX: E11.69 Type 2 diabetes mellitus with other specified complication (principal); L02.612 Cutaneous abscess of left foot; L97.429 Non-pressure chronic ulcer of left heel and midfoot with unspecified severity; M86.172 Other acute osteomyelitis, left ankle and foot; B95.62 Methicillin resistant Staphylococcus aureus infection as the cause of diseases classified elsewhere; E11.610 Type 2 diabetes mellitus with diabetic neuropathic arthropathy; E87.6 Hypokalemia; I10 Essential (primary) hypertension; J44.9 Chronic obstructive pulmonary disease, unspecified; M06.9 Rheumatoid arthritis, unspecified; E78.5 Hyperlipidemia, unspecified; E11.65 Type 2 diabetes mellitus with hyperglycemia; E11.621 Type 2 diabetes mellitus with foot ulcer; Z87.891 Personal history of nicotine dependence; Z88.2 Allergy status to sulfonamides; Z88.1 Allergy status to other antibiotic agents; Z88.8 Allergy status to other drugs, medicaments and biological substances; Z79.51 Long term (current) use of inhaled steroids; Z79.891 Long term (current) use of opiate analgesic; Z79.4 Long term (current) use of insulin; Z79.1 Long term (current) use of non-steroidal anti-inflammatories (NSAID); Z79.84 Long term (current) use of oral hypoglycemic drugs
CPT/HCPCS: 36415; 73630; 80048; 80053; 80202; 82947; 83036; 83735; 83880; 85025; 85610; 85651; 86140; 87040; 88307; 88311; 94640; 94664; 94760; 97110; 97161; 97165; 97530; 97535; A9270; J0692; J1100; J1171; J1815; J2250; J2405; J2704; J3010; J3373; J7030; J7040; J7050